=== PATIENT | female | born 1970 | race Hispanic/Latino ===

== ENCOUNTER 2016-06-10 10:23 | Outpatient (CLI) | payer OTHER ==
[2016-06-13 18:14] LABS: HPV High Risk Type 16 Negative (Negative); HPV High Risk Type 18 Negative (Negative); HPV Other High Risk Types Negative (Negative)
== END 2016-06-10 10:24 | disposition home or self-care (01) ==
LOC: MADLABBHPM 10:23
PROVIDERS: ATTEND Family Medicine
DX: Z01.411 Encounter for gynecological examination (general) (routine) with abnormal findings (principal)
CPT/HCPCS: 36415; 87624; 88142; G0123